=== PATIENT | male | born 1950 | race Caucasian/White ===

== ENCOUNTER → 2016-10-19 | Outpatient (CLI) | payer BC ==
[~2016-10-19] MED LIST: COLACE100 MG PO; ELIQUIS5 MG PO; HUMIBID LA (MU600 MG PO; LANOXIN (DIGI125 MCG PO; LIPITOR40 MG PO; LOPRESSOR25 MG PO; MULTAQ400 MG PO; NORCO 7.5-3251 EACH PO; PAIN RELIEF EX500 MG PO; ZESTORETIC 10-1 EACH PO; ZYRTEC10 MG PO
--- NOTE | ~2016-10-19 | ESTC ---
Cardiac Perfusion Imaging Demographics Patient Name LUCIANA Mata Gender Male Patient Number [id number] Race Visit Number [id number] Ethnicity Corporate ID Room Number Accession Number [id number] Height 75 inches Date of 1950 Weight 245 pounds Interpreting Deonte Arroyo Date of study 10/19/2016 Physician Supervising /LILAP Deonte Arroyo NM Technologist MD Ordering Physician Deonte Arroyo Stress scada technician Stress ECG Reading Deonte Arroyo Nurse Genny Scott RN Physician MD Procedure Procedure Type: Nuclear Stress Test:Exercise, Cardiolite Stress Test Procedure Start time: 10/19/2016 08:30 Indications: AAA and Low EF. Risk Factors The patient risk factors include:former tobacco use and treated hypertension. Conclusions Summary Medium sized inferolateral mild fixed defect defect most consistent with soft tissue attenuation. LVEF:56%. Normal WM. Stress Protocols Resting ECG RSR with PACs. Pre-stress physical exam: Un changed. Predicted HR: 156 bpm ECG Findings No ECG changes suggestive of ischemia. Arrhythmias Short runs of afib. Symptoms No chest pain. Stress Interpretation Duration:7:18 mins. DTS:6 (low risk). No chest pain. No ischemia. Short runs of afib. Imaging Results High risk findings Summed scores - Summed stress score: 1 - Summed rest score: 0 - Summed difference score: 1 Stress ejection Ejection fraction:56 % EDV :97 ml ESV :43 ml Stroke volume :54 ml LV mass :134 gr LV size:Normal Normal LV function Imaging Protocols Rest Stress Isotope:Tc99m Sestamibi IV Isotope: Tc99m Sestamibi IV Isotope dose:14.5 mCi Isotope dose:43.7 mCi Date:10/19/2016 07:02 Date:10/19/2016 09:00 Technique: SPECT Technique: Gated Supine SPECT Supine IV remains in place after procedure. Scan Time:45-60 minutes post Scan Time:15-30 minutes post injection injection Medical History Admission Data Admission date: 10/19/2016 Admission Time: 06:35 Hospital Status: Outpatient. Signatures dtt: Dina Clemons dtd: 10/19/16 0830 Physician Self Edit
== END | disposition disaster alternative care site (69) ==
LOC: GRAD 06:35
DX: I48.0 Paroxysmal atrial fibrillation (principal); R93.1 Abnormal findings on diagnostic imaging of heart and coronary circulation; I77.810 Thoracic aortic ectasia; I25.10 Atherosclerotic heart disease of native coronary artery without angina pectoris
CPT/HCPCS: A9500; Q9967

== ENCOUNTER → 2016-11-15 | Outpatient (CLI) | payer BC ==
--- NOTE | ~2016-11-15 | OR ---
PATIENT'S NAME: MAREK CHOWDHURY [facility] AGE: 65 Y [address] ROOM: [place] [address] LOCATION: [facility] ADMIT DATE: 11/15/2016 OR/Procedure Report DISCHARGE DATE: FAMILY PHYSICIAN: Lewis Caba MD ATTENDING PHYSICIAN: Chuy Guevara SURGEON: Dina Clemons MD BARREL WATERER: DATE OF PROCEDURE: 11/24/2016 Corrected patient account information per operations 12/07/16 AO PROCEDURE NAME: Cardiac MRI. PROCEDURE: The patient underwent a cardiac MRI study using Siemens Magnetom Skyra 3T scanner. His contrast use was 24 mL of ProHance. Turbo Gradient Echo and Spin Echo imaging were done for localization. SSFP imaging was performed to evaluate his ejection fraction. Delayed gadolinium enhancement analysis was performed as well as high T1 images. CONCLUSION: 1. Normal left ventricular wall thickness. Left ventricular internal dimension is normal. Ejection fraction is 52%. There are no significant wall motion abnormalities noted. The patient's ejection fraction is mildly reduced at this time. 2. Normal right heart chamber size, wall thickness, and systolic function. 3. No significant valvular abnormalities noted. 4. There is no pericardial effusion seen. 5. Cardiac evaluation revealed anterior mediastinal mass lesion. MD WILMER ROSEN/modl /[id number] Corrected patient account information per operations 12/07/16 AO d: 11/25/16 0153 t: 12/14/16 1030, OPERATIVE SUMMARY
[2016-11-15 12:15] LABS: ALBUMIN 3.6 gm/dL (3.5-5.0); ANION GAP 9.7 (10.0-19.0); BLOOD UREA NITROGEN 13 mg/dL (6-24); CALCIUM 8.9 mg/dL (8.5-10.5); CHLORIDE 105 mMol/L (96-110); CO2 27 mMol/L (22-32); CREATININE 1.1 mg/dL (0.6-1.3); ESTIMATED GFR (MDRD EQUATION) > 60; PHOSPHORUS 2.8 mg/dL (2.5-4.9); POTASSIUM 3.7 mMol/L (3.7-5.1); SODIUM 138 mMol/L (135-145)
== END | disposition disaster alternative care site (69) ==
LOC: GRAD 11:33
PROVIDERS: Thoracic Surgery (Cardiothoracic Vascular Surgery)
DX: Z09 Encounter for follow-up examination after completed treatment for conditions other than malignant neoplasm (principal); Z86.79 Personal history of other diseases of the circulatory system
CPT/HCPCS: A9577

== ENCOUNTER 2016-11-21 15:00 | Inpatient (IN) | payer BC ==
[~2016-11-21] VITALS: Ht 190.5 cm; Wt 112.9 kg
--- NOTE | ~2016-11-21 | OR ---
PATIENT'S NAME: MAREK HUNT [facility] AGE: 65 Y [address] ROOM: [address] [address] LOCATION: [facility] ADMIT DATE: 11/22/2016 OR/Procedure Report DISCHARGE DATE: FAMILY PHYSICIAN: Lewis Caba MD ATTENDING PHYSICIAN: Chuy Guevara SURGEON: Chuy Guevara DO HEAD OF TRAINING AND DEVELOPMENT: DATE OF PROCEDURE: 11/22/2016 PREOPERATIVE DIAGNOSIS: Anterior mediastinal mass. POSTOPERATIVE DIAGNOSIS: Anterior mediastinal mass. PROCEDURE PERFORMED: Right-sided approach with robotic assist for resection of mediastinal mass. BRIEF HISTORY: Mr. Hunt is a 65-year-old white male with the above-noted diagnosis. PROCEDURE IN DETAIL: He has been brought to the operative suite today, intubated with a dual-lumen endotracheal tube, placed under general anesthetic, for robotic-assisted resection of his anterior mediastinal mass. He is placed in the lateral decubitus position. 4 incisions were created in approximately the 7th intercostal space and 1 librarian assistant port was placed approximately 2 intercostal spaces below this. We placed our initial 8 mm port and through this placed a thoracoscope and placed our additional ports. The lung was nicely decompressed. The mediastinal mass was identified without difficulty with the thoracoscope. We then docked to the da Raffy system and targeted our arms and at the robotic console, I utilized electrocautery and graspers to resect the mediastinal mass in its entirety. We did enter the left pleural space as well in resecting this mass. The EndoCatch system was used to remove the specimen through the assistance port. The remaining ports were removed except for the video camera. Through our most anterior port, we placed a 24-Argent[place] Walt drain and placed its tip into the left pleural space across the mediastinum into the right pleural space and exiting the chest wall. We then irrigated copiously with approximately 2 L of normal saline and then removed all ports after removing the saline and closed our incisions in a layered fashion with 0 Vicryl, 2-0 Vicryl, and 4-0 Monocryl. The chest tube was secured to the chest wall with an 0 silk and placed to suction. The patient tolerated the procedure well, was extubated, and transferred to the recovery room in stable condition. PATIENT'S NAME: MAREK HUNT [facility] AGE: 65 Y [address] ROOM: [address] [address] LOCATION: [facility] ADMIT DATE: 11/22/2016 OR/Procedure Report DISCHARGE DATE: FAMILY PHYSICIAN: Lewis Caba MD ATTENDING PHYSICIAN: Chuy Guevara DO MCB/mak /[id number] d: 11/24/16 1558 t: 11/25/16 0920, OPERATIVE SUMMARY
--- NOTE | ~2016-11-21 | DS ---
PATIENT'S NAME: MAREK CHOWDHURY AGE: 65 Y [address] ROOM: [address] [address] LOCATION: GPCU ADMIT DATE: 11/22/2016 Discharge Summary DISCHARGE DATE: 11/28/2016 FAMILY PHYSICIAN: Lewis Caba MD ATTENDING PHYSICIAN: Chuy Sanchez [facility] COURSE: The patient is a 65-year-old white male who we recently evaluated in clinic for an anterior mediastinal mass. He was setup for surgery; and on 11/22/2016, he presented to the operative suite for a right- sided approach with the robotic assist for resection of a mediastinal mass by Dr. Sanchez. The patient had an uneventful hospital course. A chest tube was placed at the time of the surgical procedure. The patient was transferred to the Progressive Care Floor shortly thereafter. The patient's Eliquis was restarted for his chronic atrial fibrillation. His chest tube was placed to water seal on the 1st postoperative day. He did require an amiodarone bolus for runs of atrial fibrillation and then also digoxin for rapid rate. We did have resolution of the atrial fibrillation. His Multaq reinstituted. His chest tube was monitored for fluid output and did remain in place through postoperative day 5. He did have a phlebitis to the left forearm for which a hot pack was placed and did help with the swelling. 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 There was no treatment required. The pathology is sent to the patient's primary care provider as well. The patient had no healing complications while hospitalized. He did work with therapies. He was found stable to discharge to home on 11/28/2016. He did not require any skilled services upon discharge. DISCHARGE ORDERS: Included a diet with no restrictions. Activity levels that require no pulling, pushing, or lifting heavier than 10 pounds for 3 additional weeks. The patient should work with pulmonary rehab as an outpatient and we will set this up. He is to remove his dressing on 11/29/2016 and leave it open to air. He is to see Dr. Clemons as well as Cardiothoracic Surgery in approximately 7 to 10 days. This will be setup. He is to see Dr. Caba in approximately 1 week. FINAL DIAGNOSES: Include: 1. Thymic mass. 2. Atrial fibrillation with rapid ventricular response, long-term anticoagulation. 3. Hypertension. 4. Dyslipidemia. 5. Coronary artery disease. DISCHARGE MEDICATIONS: Include: 1. Eliquis 5 mg p.o. b.i.d. PATIENT'S NAME: MAREK CHOWDHURY AGE: 65 Y [address] ROOM: [place] [address] [facility] ADMIT DATE: 11/22/2016 Discharge Summary DISCHARGE DATE: 11/28/2016 FAMILY PHYSICIAN: Lewis Caba MD ATTENDING PHYSICIAN: Chuy Sanchez 2. Multaq 400 mg b.i.d. 3. Metoprolol 25 mg twice a day. 4. Lipitor 40 mg at h.s. 5. Zestoretic 10/12.5 mg half-a-tab daily. 6. Zyrtec 10 mg daily. 7. [place] 7.5/325 one p.o. q.4 h. p.r.n. 8. Digoxin 125 mcg daily. 9. Colace 100 mg twice a day. 10. Humibid LA 600 mg twice a day. The patient and verbalized understanding of the discharge orders. The patient is discharged to home in stable condition. KEITH FERRER APRN FOR CHUY SANCHEZ DO DLQ/modl /[id number] d: 12/14/16 0342 t: 12/14/16 1540, DISCHARGE SUMMARY
[~2016-11-21 15:00] MED LIST changes: -COLACE100 MG PO; -HUMIBID LA (MU600 MG PO; -LANOXIN (DIGI125 MCG PO
[2016-11-22 10:22] LABS: BILIRUBIN URINE NEGATIVE (NEGATIVE); BLOOD URINE NEGATIVE /UL (NEGATIVE); COLOR URINE YELLOW (YELLOW); GLUCOSE URINE NEGATIVE (NEGATIVE); KETONE URINE 5 mg/dL (NEGATIVE); LEUKOCYTES URINE 25 /UL (NEGATIVE); NITRITE URINE NEGATIVE (NEGATIVE); PROTEIN URINE 15 mg/dL (NEGATIVE); SPEC GRAVITY URINE 1.025 (1.003-1.035); TURBIDITY URINE CLEAR (CLEAR); UROBILINOGEN URINE NORMAL (NORMAL)
[2016-11-22 10:30] LABS: BACTERIA URINE NEGATIVE (NEGATIVE); EPITHELIAL URINE RARE #/HPF (NEGATIVE); RBC URINE NEGATIVE #/HPF (NEGATIVE); WBC URINE RARE #/HPF (NEGATIVE)
[2016-11-22 10:44] LABS: BASOPHIL # 0.1 K/uL (0.0-0.2); BASOPHIL % 0.9 %; EOSINOPHIL # 0.3 K/uL (0.0-0.5); EOSINOPHIL % 3.7 %; HEMATOCRIT 42.3 % (37.0-53.0); HEMOGLOBIN 14.1 g/dL (11.0-16.0); IMMATURE GRANULOCYTE % 0.3 %; LYMPHOCYTE # 2.1 K/uL (0.8-4.0); LYMPHOCYTE % 29.3 %; MCH 29.7 pg (27.0-34.0); MCHC 33.3 gm/dL (32.0-36.5); MCV 89.2 fl (83.0-98.0); MONOCYTE # 0.5 K/uL (0.0-1.0); MONOCYTE % 7.4 %; MPV 9.9 fl (9.4-12.4); NEUTROPHIL # (ANC) 4.1 K/uL (1.4-9.0); NEUTROPHIL % 58.4 %; NRBC % 0 /100WBC (0-0.00); PLATELET COUNT 205 K/uL (150-450); RBC 4.74 M/uL (3.50-5.50); RDW-CV 13.8 % (11.9-14.6)
[2016-11-22 10:54] LABS: INR - (THERAPEUTIC) 0.96 (0.92-1.07); PROTIME 10.1 SECONDS (9.8-11.4)
[2016-11-22 11:01] LABS: ALBUMIN 3.4 gm/dL (3.5-5.0); ANION GAP 9.6 (10.0-19.0); BLOOD UREA NITROGEN 15 mg/dL (6-24); CALCIUM 8.9 mg/dL (8.5-10.5); CHLORIDE 109 mMol/L (96-110); CO2 27 mMol/L (22-32); CREATININE 0.9 mg/dL (0.6-1.3); ESTIMATED GFR (MDRD EQUATION) > 60; PHOSPHORUS 2.8 mg/dL (2.5-4.9); POTASSIUM 3.6 mMol/L (3.7-5.1); SODIUM 142 mMol/L (135-145)
[2016-11-23 03:46] LABS: BASOPHIL % 0.1 %; HEMATOCRIT 42.6 % (37.0-53.0); HEMOGLOBIN 14.1 g/dL (11.0-16.0); IMMATURE GRANULOCYTE # 0.1 K/uL (0.0-0.3); IMMATURE GRANULOCYTE % 0.7 %; LYMPHOCYTE # 0.9 K/uL (0.8-4.0); LYMPHOCYTE % 5.5 %; MCH 29.9 pg (27.0-34.0); MCHC 33.1 gm/dL (32.0-36.5); MCV 90.4 fl (83.0-98.0); MONOCYTE # 1.1 K/uL (0.0-1.0); MONOCYTE % 6.8 %; MPV 9.8 fl (9.4-12.4); NEUTROPHIL # (ANC) 14.5 K/uL (1.4-9.0); NEUTROPHIL % 86.9 %; NRBC % 0 /100WBC (0-0.00); PLATELET COUNT 225 K/uL (150-450); RBC 4.71 M/uL (3.50-5.50); RDW-CV 13.9 % (11.9-14.6)
[2016-11-23 03:49] LABS: WBC 16.7 K/uL (4.0-11.0)
[2016-11-23 04:06] LABS: ALBUMIN 3.3 gm/dL (3.5-5.0); BLOOD UREA NITROGEN 21 mg/dL (6-24); CHLORIDE 108 mMol/L (96-110); CO2 24 mMol/L (22-32); CREATININE 1.2 mg/dL (0.6-1.3); ESTIMATED GFR (MDRD EQUATION) > 60; SODIUM 141 mMol/L (135-145)
--- NOTE | 2016-11-23 05:07 | NUR ---
Significant Event: Patient alert and oriented x3. Vital signs stable. EtCO2 continuous monitoring stable. Less drowsy than when arrived. Patient woke up at 0300 and didn't remember coming to floor or waking up previously. Wanted to know results of procedure. RN reoriented. ELEMENTARY SPANISH TEACHER continues with Morphine 1mg/dose. 6 minute lockout. Max of 30mg in 4hrs. Patient had total of 23mg this shift with 25 attempts and 23 deliveries. Right chest tube site dressing C/D/I. Chest tube with 110ml out. Flor catheter patent with 550ml dark julián uop. Pain under control as of now. Scheduled Toradol given x1. Cefazolin given x1 with 1 more dose to give. Patient calm and cooperative with all cares. Follow up: Work with Pulmonary Therapy today. Chest X-Ray this morning with labs. Will continue to monitor RR, O2 demands, EtCO2, and pain.
[2016-11-23 14:29] LABS: CREATININE 2.2 mg/dL (0.6-1.3)
--- NOTE | 2016-11-23 16:00 | NUR ---
Introduced self and role of care management to patient and his . They live in [place]. He plans home when ready for discharge. will assist him as needed at home. Will follow.
--- NOTE | 2016-11-23 16:42 | NUR ---
Significant Event:Patient this morning was having alot of pain, has been better later in shift. Visiting with and company.Torodol dc'd d/t coming up. Cr yesterday was .9, this moring 1.2, and at 1400-2.2. Urine output 200 ml, Dr. Guevara aware. Had 130 put of chest tube. [place] twice for pain, last 1600. Has COMPUTED TOMOGRAPHY SCANNER OPERATOR, 13 attempts, 12 delivers. O2 at 2L. Ambulated hallway twice with Pul. Rehab. Follow up:Repeat renal tonight, and call Dr. Guevara the results
[2016-11-23 21:36] LABS: ANION GAP 11.8 (10.0-19.0); CALCIUM 7.6 mg/dL (8.5-10.5); CREATININE 2.1 mg/dL (0.6-1.3); PHOSPHORUS 3.9 mg/dL (2.5-4.9); POTASSIUM 3.8 mMol/L (3.7-5.1)
--- NOTE | 2016-11-24 04:51 | NUR ---
Patient is alert and oriented x4. Lungs are clear and diminished on 2L of oxygen. 2 assist for ambulation. Chest tube in the right chest, water seal. 120ml of output from the chest tube. Flor catheter with 425ml output. ELEMENTARY ASSISTANT TEACHER pump delivering 1mg Morphine Q6MINS. 20 demands and 18 deliveries. Regular diet. IVs bilateral in forearms. Creatinine was 2.1, recheck renal in AM. [place] given x3, last at 0500. Bowel sounds present, abdomen is soft and round.
[2016-11-24 05:34] LABS: ALBUMIN 2.7 gm/dL (3.5-5.0); ANION GAP 9.5 (10.0-19.0); CALCIUM 7.6 mg/dL (8.5-10.5); CREATININE 1.6 mg/dL (0.6-1.3); PHOSPHORUS 3.2 mg/dL (2.5-4.9); POTASSIUM 3.5 mMol/L (3.7-5.1)
[2016-11-24 16:40] LABS: ALBUMIN 3.2 gm/dL (3.5-5.0); ANION GAP 13.7 (10.0-19.0); CALCIUM 7.8 mg/dL (8.5-10.5); CREATININE 1.3 mg/dL (0.6-1.3); POTASSIUM 3.7 mMol/L (3.7-5.1)
--- NOTE | 2016-11-24 19:04 | NUR ---
Significant Event: ALERT & ORIENTED. HR 90-100'S SINUS RHYTHM. AFIB THIS AM, ON AMIODARON GTT AND DIGOXIN Q6 HOURS, CALL MD IF HR LESS THAN 80. GAVE 60 MEQ PO POTASSIUM. SBP 90-130, GAVE ALBUMIN, HELD LOPRESSOR. ON 5L O2, ENCOURAGED TCDB, IS. CHEST TUBE WATER SEAL WITH 150 ML OUT. AFEBRILE. GUDINO OUT AT 1400. MORPHINE PROCESS DESIGNER 1MG Q6 MIN. NORCO 1.5 TABS Q4H HOURS. NS AT 75 ML/HR. Follow up: RESPIRATORY STATUS
[2016-11-25 04:32] LABS: BASOPHIL % 0.2 %; EOSINOPHIL # 0.1 K/uL (0.0-0.5); EOSINOPHIL % 0.7 %; HEMOGLOBIN 11.5 g/dL (11.0-16.0); IMMATURE GRANULOCYTE % 0.4 %; LYMPHOCYTE # 1.5 K/uL (0.8-4.0); MCH 29.6 pg (27.0-34.0); MCHC 31.9 gm/dL (32.0-36.5); MCV 92.8 fl (83.0-98.0); MPV 9.7 fl (9.4-12.4); NEUTROPHIL # (ANC) 8.6 K/uL (1.4-9.0); NEUTROPHIL % 76.7 %; NRBC % 0 /100WBC (0-0.00); RBC 3.88 M/uL (3.50-5.50); RDW-CV 14.7 % (11.9-14.6); WBC 11.2 K/uL (4.0-11.0)
[2016-11-25 04:33] LABS: PLATELET COUNT 170 K/uL (150-450)
[2016-11-25 04:50] LABS: ALBUMIN 2.9 gm/dL (3.5-5.0); ANION GAP 12.3 (10.0-19.0); BLOOD UREA NITROGEN 27 mg/dL (6-24); CHLORIDE 108 mMol/L (96-110); CO2 25 mMol/L (22-32); ESTIMATED GFR (MDRD EQUATION) > 60; POTASSIUM 4.3 mMol/L (3.7-5.1); SODIUM 141 mMol/L (135-145)
[2016-11-25 04:56] LABS: PHOSPHORUS 1.5 mg/dL (2.5-4.9)
--- NOTE | 2016-11-25 05:11 | NUR ---
Significant event: Patient A/O x 3. CT to water seal with 100ml out this shift. Dressing is C/D/I. MEDICAL STAFF SPECIALIST attempts 15 and deliveries 10. New IV started On the left inner forearm as patient C/O [facility] burning shortly after shift change. Voiding well per urinal with 700ml of Urine out this shift. [place] given x 2 with the last around 0230.
--- NOTE | 2016-11-25 17:50 | NUR ---
Significant Event: ALERT& ORIENTED. VSS, HR 78-80'S SR, CHANGED AMIO & DIGOXIN TO PO. AFEBRILE. DOWN TO 1L O2. 70 ML OUT FROM CHEST TUBE. AMBULATED TO BATHROOM 1 ASSIST, NO BM YET, REFUSED MILK OF MAG. NORCO Q4 HOURS, DC'd WEB PORTAL DEVELOPER, MORPHINE AVAILABLE FOR BREAKTHROUGH PAIN, NONE GIVEN. 2 MG BUMEX GIVEN. IV SL.
[2016-11-26 04:11] LABS: ALBUMIN 2.7 gm/dL (3.5-5.0); ANION GAP 10.5 (10.0-19.0); BLOOD UREA NITROGEN 18 mg/dL (6-24); CALCIUM 8.1 mg/dL (8.5-10.5); CHLORIDE 106 mMol/L (96-110); CO2 28 mMol/L (22-32); CREATININE 0.9 mg/dL (0.6-1.3); ESTIMATED GFR (MDRD EQUATION) > 60; POTASSIUM 3.5 mMol/L (3.7-5.1); SODIUM 141 mMol/L (135-145)
[2016-11-26 04:24] LABS: PHOSPHORUS 1.7 mg/dL (2.5-4.9)
--- NOTE | 2016-11-26 05:34 | NUR ---
Significant Event: NORCO 2 TABS GIVEN Q4H FOR PAIN. O2 INCREASED TO 2L PER NC. TEMP AT 1999 WAS 100.3. FLUTTER VALVE AND IS ENCOURAGED TO KEEP TEMP DOWN. BY 2204, PT WAS AFEBRILE. CHEST TUBE HAD 110ML OF SEROSANG DRAINAGE. VOIDING SLOWLY PER URINAL. UP WITH STANDBY ASSIST. Follow up:
--- NOTE | 2016-11-26 16:01 | NUR ---
Significant Event: a/o. VSS weaned to RA. Routine pain meds. CT 60ml serosanguinous output. Only ambulated x1 today, requires a lot of encouragement. MOM given with no results, offered suppository/pruce juice patient refused both. Follow up: continue with plan of care
[2016-11-27 04:07] LABS: ALBUMIN 2.8 gm/dL (3.5-5.0); ANION GAP 7.8 (10.0-19.0); BLOOD UREA NITROGEN 14 mg/dL (6-24); CALCIUM 8.6 mg/dL (8.5-10.5); CHLORIDE 104 mMol/L (96-110); CO2 30 mMol/L (22-32); CREATININE 0.8 mg/dL (0.6-1.3); ESTIMATED GFR (MDRD EQUATION) > 60; PHOSPHORUS 2.5 mg/dL (2.5-4.9); POTASSIUM 3.8 mMol/L (3.7-5.1); SODIUM 138 mMol/L (135-145)
--- NOTE | 2016-11-27 04:22 | NUR ---
Significant Event: NORCO GIVEN X2. INCREASED PAIN AT START OF SHIFT. DRESSING CHANGED TO CHEST TUBE SITE TO MAKE IT MORE SECURE. PAIN A LITTLE BETTER AFTER THIS. NO BM THIS SHIFT. STILL JUST PASSING GAS. O2 REAPPLIED AT 1L TO KEEP SATS GREATER THAN 90%. CHEST TUBE HAD 60 ML OUT. Follow up: NEEDS TO HAVE A BM. ADD STOOL SOFTENER?
--- NOTE | 2016-11-27 12:32 | NUR ---
PT SCREENED D/T LOS. EST NEEDS: [id number] KCALS, 90-107 GM PROTEIN, 1 ML/KCAL FLUIDS. INTAKE ADEQUATE. NO NUTRITION-RELATED DX IDENTIFIED. WILL ASSIST NEEDED.
--- NOTE | 2016-11-27 13:54 | NUR ---
Talked with patient, chest tube taken out today. Hoping to go home tomorrow. Denies concerns about going home, will assist him if needed. Will follow.
--- NOTE | 2016-11-27 16:51 | NUR ---
Significant Event: VSS AND RA. AFEBRILE. CT D/C'D THIS AM AND DRESSING REMAINS C/D/I. UP AND AMBULATES IN THE CONDE WITH PULMONARY REHAB X2 TODAY AND UP TO CHAIR MOST OF THE DAY. NORCO 1.5 TAB THIS AM AND 1 TAB THIS AFTERNOON PER REQUEST WITH GOOD PAIN CONTROL. GAVE MOM, MIRALAX, AND COLACE AND HAD A MOD BM THIS AFTERNOON. Follow up: CONTINUE PLAN OF CARE; 2 VIEW CXR IN THE AM.
[2016-11-28 04:22] LABS: ALBUMIN 2.9 gm/dL (3.5-5.0); ANION GAP 10.7 (10.0-19.0); BLOOD UREA NITROGEN 16 mg/dL (6-24); CALCIUM 8.6 mg/dL (8.5-10.5); CHLORIDE 103 mMol/L (96-110); CO2 27 mMol/L (22-32); CREATININE 0.9 mg/dL (0.6-1.3); ESTIMATED GFR (MDRD EQUATION) > 60; PHOSPHORUS 2.8 mg/dL (2.5-4.9); POTASSIUM 3.7 mMol/L (3.7-5.1); SODIUM 137 mMol/L (135-145)
--- NOTE | 2016-11-28 05:26 | NUR ---
Significant event: A/O x 3, VSS up in room with minimal assist. Site to where CT was pulled is C/D/I. [place] 1.5 tabs x 2 given with good pain relief last given at 0300. 2 view x-ray this morning and plan to go home if everything looks good. Meds on chart.
[2016-11-28] MEDS ORDERED: LANOXIN (DIGI125 MCG PO (09:46)
[2016-11-28] MEDS ORDERED: COLACE100 MG PO ×2 (09:47→09:48)
[2016-11-28] MEDS ORDERED: HUMIBID LA (MU600 MG PO (09:49)
[2016-11-28] MEDS ORDERED: LOPRESSOR25 MG PO (09:51)
--- NOTE | 2016-11-28 11:15 | NUR ---
Spoke with patient and and he is going home today. Has an [employer] plan and has questions regarding obtaining required documents for them. Gave him an authorization for release of information. He says he will take it home, talk to [employer] agent, complete it and fax back to HIM. Denies any discharge needs at this time.
--- NOTE | 2016-11-28 12:31 | NUR ---
PATIENT GIVEN WRITTEN DISMISSAL INSTRUCTIONS INCLUDING NEW HOME MEDICATION LIST WITH INFORMATION ON NEW MEDS, PRESCRIPTIONS, FOLLOW-UP APPOINTMENT TIMES, HOW TO CARE FOR INCISIONNNS AND DIET AND ACTIVITY RESTRICTIONS. PATIENT STATES UNDERSTANDING USE OF CALL LIGHT TO VOICE NEEDS. TELEMETRY D'D, PIV REMOVED FROM RIGHT FA WITH GAUZE/COBAN APPLIED, DRESSED IN OWN CLOTHING. TAKEN TO FRONT OF [facility] VIA WHEELCHAIR ACCOMPANIED BY RN, AND BELONGINGS AT 1150.
== END 2016-11-28 11:46 | disposition disaster alternative care site (69) | DRG 988 ==
LOC: GPCU 11-22 09:25
PROVIDERS: Nurse Practitioner Women's Health; ADMIT Thoracic Surgery (Cardiothoracic Vascular Surgery)
DX: E32.8 Other diseases of thymus (principal); I47.2 Ventricular tachycardia; N17.9 Acute kidney failure, unspecified; I48.2 Chronic atrial fibrillation; E78.5 Hyperlipidemia, unspecified; I25.10 Atherosclerotic heart disease of native coronary artery without angina pectoris; Z79.01 Long term (current) use of anticoagulants
CPT/HCPCS: G0237; G0424; J0282; J0690; J1100; J1160; J1170; J1644; J1885; J2001; J2270; J2405; J2765; J3010; J7030; J7060; P9045